=== PATIENT | male | born 1965 | race Caucasian/White ===

== ENCOUNTER → 2016-06-17 | Outpatient (REF) | payer BC, OTHER ==
[2016-06-17 18:22] LABS: INR 0.96
== END ==
LOC: M LAB REF 16:58
PROVIDERS: ATTEND Internal Medicine Pulmonary Disease
DX: R91.1 Solitary pulmonary nodule (principal)

== ENCOUNTER → 2016-07-01 | Outpatient (CLI) | payer BC, OTHER ==
[~2016-07-01] MED LIST: LIDOCAINE 1% MDV 20ML VIAL As Ordered ONE
--- NOTE | 2016-07-01 10:44 | REP ---
PA CHEST X-RAY: Single view. HISTORY: Right lower lobe lung mass. Question pneumothorax. Small pneumothorax visible on post biopsy CT images. FINDINGS: An azygos venous lobe is seen. There is no visible pneumothorax on this radiograph. No pulmonary hemorrhage or atelectasis is seen. Left lung is clear. Cardiomediastinal silhouette is unremarkable. IMPRESSION: No pneumothorax identified. We will get a follow-up film in 2 hours. Signed by Song Castro MD 07/01/2016 08:56 P
--- NOTE | 2016-07-01 11:29 | REP ---
CT-GUIDED NEEDLE BIOPSY RIGHT LOWER LOBE LUNG MASS: HISTORY: CT pulmonary angiogram from [facility] dated May 12, 2016 showed a pleural-based mass in the right lower lobe posteriorly. PROCEDURE: The patient was interviewed, and informed consent was obtained. The patient was placed prone on the CT table, and preliminary CT imaging confirmed the presence of the mass and was utilized to plan needle trajectory. After patient safety time-out was articulated and agreed to, the posterior aspect of the right chest was prepped and draped in the usual fashion. Utilizing CT guidance, 1% lidocaine for local anesthetic, and a coaxial 19/20 gauge 10 mL needle, five core specimens were retrieved from the mass without significant technical difficulty. One of these was submitted for culture as requested. The other four were submitted for pathology. The patient tolerated the procedure well. Postprocedure CT imaging shows a small amount of pneumothorax, however, in the right posterior pleural space. The patient was placed supine at this point, and nasal cannula 2 liters per minute oxygen was started to facilitate resorption of the intrapleural air. Postprocedure chest x-ray was obtained. IMPRESSION: CT-guided needle biopsy right lower lobe lung mass. Signed by Song Castro MD 07/01/2016 08:57 P
--- NOTE | 2016-07-01 13:23 | REP ---
Chest x-ray: PA view. History: Follow-up question pneumothorax. The patient is status post needle biopsy right lower lobe lung mass. Comparison study is from 2 hours earlier. Findings: On the current chest x-ray, there is no visible pneumothorax on either side. An azygos lobe is noted on the right. No other abnormality. Impression: No pneumothorax seen. Signed by Song Castro MD 07/01/2016 08:57 P
== END ==
LOC: M RADPRO 08:10
PROVIDERS: ATTEND Internal Medicine Pulmonary Disease
DX: R91.1 Solitary pulmonary nodule (principal); J95.811 Postprocedural pneumothorax

== ENCOUNTER → 2016-09-03 | Outpatient (CLI) | payer BC, OTHER ==
--- NOTE | 2016-09-04 02:45 | REP ---
Clinical: Solitary pulmonary nodule . Comparison: 07/01/2016. Technique: PA and lateral. Findings: The mediastinum and cardiac silhouette are normal. The lung arreola are clear and without acute consolidation, effusion, or pneumothorax. The skeletal structures are intact and normal. Impression: 1. No acute cardiopulmonary process. Signed by Jacobo Emery MD 09/04/2016 02:37 A
== END ==
LOC: M SMT 10:23
PROVIDERS: ATTEND Internal Medicine Pulmonary Disease
DX: R91.1 Solitary pulmonary nodule (principal)

== ENCOUNTER → 2016-12-23 | Outpatient (CLI) | payer BC, OTHER ==
--- NOTE | 2017-01-01 10:38 | REP ---
CT of the chest without IV contrast: Comparison is 05/12/2016 . On the comparison study there was a 2.5 x 3.6 cm density in the deep posterior sulcus of the right lung. This lesion underwent CT-guided needle biopsy on 07/01/2016. On the study today this lesion is again identified and has decreased in size measuring 1.1 x [address] density within this lesion is 0.1 Hounsfield units, compatible with a cyst. There are no other nodules or masses. There are no infiltrates or effusions. An azygos lobe of the right lung is incidentally identified, unchanged. There is no mediastinal adenopathy. No axillary adenopathy. The study is insensitive for hilar adenopathy in the absence of IV contrast. The unenhanced thoracic aorta is unremarkable. Cardiac size is normal. There is no pericardial effusion. The visualized upper abdominal contents are unremarkable and unchanged. Impression: The patient's known focal lesion in the deep posterior sulcus of the right lung has decreased size and has CT Hounsfield unit density of a cyst. I note that this lesion underwent CT-guided needle biopsy on 07/01/2016. Otherwise, essentially negative CT study of the chest. Signed by Dominic Kilpatrick MD 01/01/2017 10:29 A
== END ==
LOC: M RAD 07:44
PROVIDERS: ATTEND Internal Medicine Pulmonary Disease
DX: R91.1 Solitary pulmonary nodule (principal)

== ENCOUNTER → 2017-12-21 | Outpatient (CLI) | payer BC, OTHER | LOC: M RAD 08:03 | DX: R91.1 Solitary pulmonary nodule (principal) | CPT/HCPCS: 71250 ==

== ENCOUNTER → 2020-04-17 | Outpatient (CLI) | payer BC, OTHER ==
[~2020-04-17] MED LIST changes: -LIDOCAINE 1% MDV 20ML VIAL As Ordered ONE; +PERC5TAB12 PO; +XARE10TA PO
== END ==
LOC: M LABSMTC 12:28
PROVIDERS: ATTEND Anesthesiology
DX: Z01.812 Encounter for preprocedural laboratory examination (principal); Z20.822 Contact with and (suspected) exposure to COVID-19

== ENCOUNTER 2020-04-22 07:27 | Inpatient (IN) | payer BC, OTHER ==
--- NOTE | 2020-04-12 10:25 | HPE ---
HISTORY AND PHYSICAL DATE OF ANTICIPATED ADMISSION: 04/22/2020 CHIEF COMPLAINT: Right knee pain and stiffness. HISTORY OF PRESENT ILLNESS: The patient is a 54-year-old male with progressively worsening right knee pain and stiffness. He has failed to improve with conservative measures. He continues to have symptoms with weightbearing activities and activities of daily living. He has consented for an elective right total knee arthroplasty with Dr. Hunter for his continued symptoms. Medical optimization pending with Dr. Doty. CHRONIC MEDICATIONS: None. ALLERGIES: No known drug allergies. CHRONIC MEDICAL CONDITIONS: Osteoarthritis. PAST SURGICAL HISTORY: 1. Vasectomy. 2. Colonoscopy. SOCIAL HISTORY: The patient denies tobacco or alcohol use. REVIEW OF SYSTEMS: The patient denies fevers, chills, nausea, vomiting, or diarrhea. Denies chest pain, shortness of breath, lightheadedness, dizziness, or headaches. Denies any recent upper respiratory or urinary tract infection symptoms. He denies any abdominal pain. The patient does continue to have right knee pain with weightbearing activities and activities of daily living. PHYSICAL EXAMINATION: GENERAL: Well-nourished and well-developed male, in no apparent distress. He is alert, oriented, and cooperative. Mood and affect are appropriate. VITAL SIGNS: Height 73 inches, weight 209 pounds. Temperature 96.9, blood pressure 118/80, heart rate 54, respirations 14. NECK: Supple without lymphadenopathy. HEART: Regular rate and rhythm. LUNGS: Clear to auscultation bilaterally. Breathing is regular and unlabored. ABDOMEN: Soft and nontender. Bowel sounds are present. MUSCULOSKELETAL: Right knee exhibits no gross abnormalities. Skin is intact. There was tenderness along the medial and lateral joint lines. The patient can extend the knee to about 5 degrees and flex to 95 degrees. Right lower extremity strength is 5/5. Calf is soft and nontender without evidence of DVT. He is neurovascularly intact distally. IMPRESSION: Right knee osteoarthritis with x-rays notable for end-stage degenerative changes. PLAN: The patient has consented for an elective right total knee arthroplasty with Dr. Hunter for his continued symptoms. Medical optimization pending with Dr. Doty. The patient understands he will be n.p.o. after midnight the night prior to surgery. He will be getting his COVID test and using his Bactroban and Hibiclens as directed.
[~2020-04-22] VITALS: Ht 182.9 cm; Wt 96.2 kg
[~2020-04-22 07:27] MED LIST changes: +LR 1,000 ML IV ONE; -PERC5TAB12 PO; -XARE10TA PO; +ceFAZolin SOD 2 GM in IV 1 EA IV ONE
[2020-04-22] MEDS ORDERED: MIDAZOLAM INJ 2MG/2ML VIAL (J2250 PER 1MG) As Ordered ONE ×2 (08:32→08:46)
[2020-04-22] MEDS ORDERED: fentaNYL 100 MCG/2 ML INJECTION (J3010) As Ordered ONE ×2 (08:33→08:46)
[2020-04-22] MEDS ORDERED: ONDANSETRON 4MG/2ML VIAL As Ordered ONE (08:33)
[2020-04-22] MEDS ORDERED: propofoL 200 MG/20 ML VIAL As Ordered ONE ×2 (08:33→10:15)
[2020-04-22] MEDS ORDERED: LIDOCAINE 2% 100MG/5ML SDV (FOR ANES.) As Ordered ONE (08:33)
[2020-04-22] MEDS ORDERED: LIDOCAINE 1% MDV 20ML VIAL As Ordered ONE (08:46)
[2020-04-22] MEDS ORDERED: dexameTHASONE 4 MG/ML 1ML VIAL (J1100 PER 1MG) As Ordered ONE (08:46)
[2020-04-22] MEDS ORDERED: ROPIvacaine 0.5% 30ML INJECTION (J2795 PER 1MG) As Ordered ONE (08:46)
[2020-04-22] MEDS ORDERED: LIDOCAINE 1% MDV 20ML VIAL XX ONE (09:00)
[2020-04-22] MEDS ORDERED: dexameTHASONE 10MG/1ML VIAL PRES.FREE (J1100 PER 1MG) XX ONE (09:00)
[2020-04-22] MEDS ORDERED: ROPIvacaine 0.5% 30ML INJECTION (J2795 PER 1MG) XX ONE (09:00)
[2020-04-22] MEDS: fentaNYL 100 MCG/2 ML INJECTION (J3010) IV PRN ×2 (09:01→09:02)
[2020-04-22] MEDS: MIDAZOLAM INJ 2MG/2ML VIAL (J2250 PER 1MG) IV PRN ×2 (09:01→09:03)
[2020-04-22] MEDS ORDERED: EPINEPHrine INJ 1 MG/ML 1ML AMP As Ordered ONE (09:10)
[2020-04-22] MEDS ORDERED: BUPIVACAINE LIPOSOME/PF 1.3% 20ML VIAL (13.3MG/ML)(EXPAREL)(C9290 PER1MG) As Ordered ONE (09:10)
[2020-04-22] MEDS ORDERED: ceFAZolin 1GM VIAL (J0690 PER 500MG) As Ordered ONE (09:10)
[2020-04-22] MEDS ORDERED: TRANEXAMIC ACID 100 MG/ML 10ML VIAL As Ordered ONE (09:10)
[2020-04-22] MEDS ORDERED: BUPIVACAINE HCL 0.25% 10ML VIAL As Ordered ONE (09:10)
--- NOTE | 2020-04-22 09:56 | IPN ---
PROGRESS NOTE DATE: 04/22/2020 SUBJECTIVE: Patient seen and examined. He wished to go ahead with a right total knee arthroplasty. Preop history and physical was performed previously. He wishes to proceed. He understands the nature of this, the risks of bleeding, infection, damage to nerves, vessels, persistent pain, wear, loosening, blood clots, medical problems, among others.
[2020-04-22] MEDS ORDERED: ACETAMINOPHEN 1000MG 100ML IV BTL (OFIRMEV) (J0131 PER 10MG) As Ordered ONE (10:28)
[2020-04-22] MEDS ORDERED: MORPHINE 2 MG/ML 1ML VIAL (J2270) IV PRN (12:00)
[2020-04-22] MEDS ORDERED: ONDANSETRON 4MG/2ML VIAL IV PRN ×2 (12:00)
[2020-04-22] MEDS ORDERED: oxyCODONE 5MG TAB PO PRN (12:00)
[2020-04-22] MEDS ORDERED: fentaNYL 100 MCG/2 ML INJECTION (J3010) IV PRN (12:00)
[2020-04-22] MEDS ORDERED: LR 1,000 ML IV SCH ×2 (12:00)
[2020-04-22] MEDS ORDERED: MORPHINE 4 MG/ML 1ML VIAL/SYRINGE (J2270) IV PRN (12:00)
--- NOTE | 2020-04-22 12:11 | RO ---
OPERATIVE NOTE DATE OF OPERATION: 04/22/2020 PREOPERATIVE DIAGNOSIS: Right knee osteoarthritis. POSTOPERATIVE DIAGNOSIS: Right knee osteoarthritis. PROCEDURE: Right total knee arthroplasty using Attune rotating platform, posterior stabilized size 6 femur, size 7 tibial tray, 7 polyethylene, 38 patellar button. SURGEON: King Hunter MD [employer] DECORATOR: Leo De Los Santos PA-C ANESTHESIA: Spinal. EBL: 50. COMPLICATIONS: None. DESCRIPTION OF PROCEDURE: The patient was taken to the operating room and placed in the supine position after spinal anesthesia was induced. The right lower extremity was prepped and draped in the usual sterile fashion. A time-out was performed. Tourniquet was inflated. A longitudinal incision was made over the anterior aspect of the knee and sharp dissection was carried down through subcutaneous tissue. A medial parapatellar arthrotomy was performed per routine. I everted the patella, flexed the knee up and removed osteophytes from the femoral side. I then used the canal-initiating reamer on the femoral side followed by the intramedullary guide set at 5 degrees of valgus and 9 mm cut. This was pinned in place and the distal femoral cut was made protecting soft tissues. We then sized the femur to be a 6 and the drill holes were placed in the end of the femur with the external rotation dialed in. The cutting block was secured and the remaining cuts were made protecting soft tissues. I then prepared the tibial surface and the tibial retractors were placed. Tibial alignment guide and then this was set in the appropriate amount of valgus and posterior slop. 4 mm were cut off the low side. He did have very severe arthritis primarily of them medial compartment but did have arthritis in all three compartments. The proximal tibial cut was made, removed the excess bone. I then used a post form remover to remove soft tissue and osteophytes from either side of the knee. Spacer blocks were used at this point. The PCL was still intact and we decided between 6 and 7 spacer. The sulcus cut was then made initially. I then prepared the tibial surface, size 7 fit nicely. I drilled and broached and then we placed trial components and I was not happy with the tightness in flexion; I felt the PCL was too tight and the poly tended to spit out posteromedially. However, the soft tissue balance at 90 degrees was reasonably good, he had good extension. I decided to go with PCL sacrificing. I felt that it would be easier to balance the soft tissues. The box cutting guide was then secured. The remaining three cuts were made and then we trialed the components with the posterior stabilized size 7 polyethylene and this had excellent soft tissue balance, excellent flexion and flexion/extension gaps were appropriate. We then free-hand cut the patella, removing about 7 mm of bone and drilled this with a 38 button which fit very well. The patellar button tracked reasonably well, I did do a mild lateral release and the patella at this point tracked perfectly. I then drilled the holes in the end of the femur. The trial components were removed. The advertising assistant prepared the bone cement in modern technique. I placed Exparel in the deep tissues including the posterior capsule and aspirated before injecting. The surfaces were copiously irrigated. I then dried the bony surfaces, cemented in the components, removed all excess bone cement and then placed TXA deep in the wound. I then began closing proximally with interrupted #1 Vicryl suture and then running Stratafix suture. I then irrigated again in the deep wound and closed the remaining wound with #1 Stratafix obtaining watertight closure. At this point we deflated the tourniquet once we had removed the patellar clamp and closed the final deep layer once the cement had hardened. I then closed the subcu with 2-0 Vicryl and the skin with vaishali, irrigating at each level. A sterile dressing was applied. The patient was taken to the recovery room in stable condition. There were no known complications. The plan will be routine postop. The advertising assistant was instrumental in holding retractors and assisting in mixing the bone cement and assisting in wound closure.
[2020-04-22] MEDS ORDERED: PERCOCET 5MG/325MG TAB PO PRN (12:15)
[2020-04-22 12:30] VITALS: BP 124/75
[2020-04-22 13:00] VITALS: BP 141/88
--- NOTE | 2020-04-22 13:02 | REP ---
INDICATION: POST OP NEW KNEE COMPARISON: None TECHNIQUE: AP and lateral portable FINDINGS: There has been total knee prosthetic device placement the femoral and tibial components of which are well seated and well approximated. The alignment is near anatomical. There is expected postoperative soft tissue swelling. There is an anterior midline skin staple line in place. IMPRESSION: Status post TKR as described. <Electronically signed by Frank Hurley > 04/22/20 [id number]
[2020-04-22 14:00] VITALS: BP 125/71
[2020-04-22 15:00] VITALS: BP 125/71
[2020-04-22 16:00] VITALS: BP 114/61
[2020-04-22] MEDS: ceFAZolin SOD 2 GM in IV 1 EA IV SCH (17:24)
[2020-04-22] MEDS: ACETAMINOPHEN TAB 650MG DOSE (2X325MG) PO PRN ×2 (17:25→21:13)
[2020-04-22 22:00] VITALS: BP_SYST 130; BP_SYST 132; BP_DIAS 69; BP_DIAS 87
[2020-04-23 02:00] VITALS: BP 131/70
[2020-04-23] MEDS: ceFAZolin SOD 2 GM in IV 1 EA IV SCH (02:04)
[2020-04-23 06:00] VITALS: BP 123/74
[2020-04-23] MEDS ORDERED: XARE10TA PO (06:30)
[2020-04-23] MEDS ORDERED: PERC5TAB12 PO (06:30)
[2020-04-23] MEDS ORDERED: MOM 30ML SUSPENSION UDC PO SCH (06:30)
[2020-04-23 06:39] LABS: HEMATOCRIT 36.3 % (42.0-52.0); HEMOGLOBIN 12.3 g/dl (13.5-17.5); MEAN CORPUSCULAR HEMOGLOBIN 31.4 pg (27.0-33.0); MEAN CORPUSCULAR HGB CONC 33.9 g/dl (32.0-36.5); MEAN CORPUSCULAR VOLUME 92.6 fl (80.0-96.0); PLATELET COUNT, AUTOMATED 143 10^3/uL (150-450); RED BLOOD COUNT 3.92 10^6/uL (4.30-6.10); WHITE BLOOD COUNT 12.9 10^3/uL (4.0-10.0)
[2020-04-23] MEDS: ACETAMINOPHEN TAB 650MG DOSE (2X325MG) PO PRN ×2 (07:38→14:08)
[2020-04-23] MEDS ORDERED: MIRALAX *UNIT DOSE* 17GM PACKET PO SCH (09:00)
[2020-04-23] MEDS ORDERED: RIVAROXABAN 10 MG TAB (XARELTO) PO SCH (18:00)
--- NOTE | 2020-04-26 10:07 | DSES ---
DISCHARGE SUMMARY DATE OF ADMISSION: 04/22/2020 DATE OF DISCHARGE: 04/23/2020 ADMITTING DIAGNOSIS: Right knee osteoarthritis. DISCHARGE DIAGNOSIS: Status post right total knee arthroplasty. HISTORY OF PRESENT ILLNESS: This is a pleasant 54-year-old male with progressively symptomatic right knee osteoarthritis. He has consented for a right total knee arthroplasty per Dr. King Hunter. Medical optimization per Dr. Flores. X-rays are consistent with advanced osteoarthritis. Operation performed: Right total knee arthroplasty. HOSPITAL COURSE: The patient uneventfully underwent right total knee arthroplasty under spinal anesthesia and was returned to Recovery comfortable. Our hospital team felt the patient was suitable for discharge on 04/23/2020 with the following instructions: Diet is regular, Percocet p.r.n. for pain, weight bearing as tolerated with walker, Optifoam dressing change in 3-4 day's time, and anticoagulation per protocol with TEDS stockings x30 days. TREATMENT PLAN: The patient is scheduled for follow up at [facility] 12[facility]14 days for a wound check and potential staple removal. Mr. Hunter was counseled to contact our office sooner with increased pain, numbness, tingling down the lower extremities, redness, drainage, bleeding and/or fever greater than 101. MTDD
== END 2020-04-23 14:39 | disposition home or self-care (01) | DRG 302 ==
LOC: M SDC 07:27 → M MS5PR 12:25
PROVIDERS: ADMIT Orthopaedic Surgery; ATTEND Orthopaedic Surgery
PROC: 0SRC0J9 Replacement of Right Knee Joint with Synthetic Substitute, Cemented, Open Approach (ICD-10-PCS; principal; 2020-04-22 09:30)
DX: M17.11 Unilateral primary osteoarthritis, right knee (principal)